=== PATIENT | male | born 1990 | race Caucasian/White ===

== ENCOUNTER 2016-12-24 20:07 | Emergency (ER) | payer OTHER ==
[~2016-12-24] VITALS: Ht 182.8 cm; Wt 93.4 kg
[2016-12-24] MEDS ORDERED: CLINDAMYCIN HC300 MG PO (20:20)
[2016-12-24] MEDS ORDERED: LIDOCAINE VISC100 ML MM (20:20)
[2016-12-24] MEDS ORDERED: Peridex 473 ML473 ML PO (20:20)
== END 2016-12-24 20:18 | disposition home or self-care (01) ==
LOC: ED 20:07
DX: K08.89 Other specified disorders of teeth and supporting structures (principal); Z88.0 Allergy status to penicillin; Z88.1 Allergy status to other antibiotic agents

== ENCOUNTER 2017-12-08 15:31 | Inpatient (IN) | payer OTHER ==
[~2017-12-08] VITALS: Ht 185.4 cm; Wt 101.3 kg
[~2017-12-08 15:31] MED LIST: CLINDAMYCIN HC300 MG PO; LIDOCAINE VISC100 ML MM; Peridex 473 ML473 ML PO
[2017-12-08 15:39] VITALS: BP 121/78
[2017-12-08 16:30] LABS: BILIRUBIN 1+ (NEGATIVE); BLOOD NEGATIVE (NEGATIVE); CLARITY CLEAR (CLEAR); COLOR YELLOW (YELLOW); GLUCOSE NEGATIVE (NEGATIVE); KETONE TRACE (NEGATIVE); LEUKO ESTERASE NEGATIVE (NEGATIVE); NITRITE NEGATIVE (NEGATIVE); SPECIFIC GRAVITY 1.015 (1.005-1.030); UROBILINOGEN >= 8.0 E.U./dl (0.2-1.0)
[2017-12-08 16:34] LABS: BASO % 0.1 % (0.0-1.0); EOS # 0.2 10*3/uL (0.0-0.4); EOS % 1.2 % (1.0-4.0); HEMATOCRIT 37.9 % (42.0-52.0); HEMOGLOBIN 12.9 g/dl (14.0-18.0); LYMPH # 1.7 10*3/uL (1.3-4.4); LYMPH % 11.8 % (27.0-41.0); MONO # 0.8 10*3/uL (0.1-1.0); MONO % 5.4 % (3.0-9.0); NEUT # 11.9 10*3/uL (2.3-7.9); NEUT % 81.2 % (47.0-73.0); PLATELET COUNT AUTOMATED 205 10*3/uL (130-400); RED BLOOD COUNT 4.03 10*6/uL (4.50-5.90); RED CELL DISTRI WIDTH 12.5 % (0-14.5); WHITE BLOOD COUNT 14.7 10*3/uL (4.8-10.8)
[2017-12-08 16:40] VITALS: BP 120/78
[2017-12-08 16:40] LABS: BACTERIA TRACE; MUCOUS 2+
[2017-12-08 16:41] LABS: EPITHELIAL CELLS 0-2; WBC 0-2 wbc/hpf (0-5)
[2017-12-08 16:48] LABS: ALBUMIN 4.2 gm/dl (3.1-4.5); ALKALINE PHOSPHATASE 65 U/L (45-117); BUN 10 mg/dl (7-24); CHLORIDE 106 mmol/L (98-107); LIPASE 99 U/L (73-393); POTASSIUM 3.8 mmol/L (3.5-5.1); SGOT/AST 12 IU/L (3-35); SGPT/ALT 16 U/L (12-78); SODIUM 140 mmol/L (136-145); TOTAL PROTEIN 7.5 gm/dL (6.4-8.2)
[2017-12-08 17:50] VITALS: BP 120/78
[2017-12-08 18:45] VITALS: BP 120/78
[2017-12-08 20:00] VITALS: BP 120/74
[2017-12-08 21:40] VITALS: BP 130/76
[2017-12-09] VITALS (11 sets, daily range): BP systolic 98–130; BP diastolic 51–77
[2017-12-09 07:13] LABS: BASO % 0.3 % (0.0-1.0); EOS # 0.3 10*3/uL (0.0-0.4); EOS % 4.9 % (1.0-4.0); HEMATOCRIT 34.8 % (42.0-52.0); HEMOGLOBIN 11.7 g/dl (14.0-18.0); LYMPH # 2.1 10*3/uL (1.3-4.4); LYMPH % 31.6 % (27.0-41.0); MEAN CELL VOLUME 94.6 fl (80.0-94.0); MEAN CORPUSCULAR HGB 31.8 pg (27.0-31.0); MEAN CORPUSCULAR HGB CONC 33.6 g/dl (33.0-37.0); MEAN PLATELET VOLUME 10.3 fl (9.6-12.3); MONO # 0.5 10*3/uL (0.1-1.0); NEUT # 3.5 10*3/uL (2.3-7.9); NEUT % 54.7 % (47.0-73.0); PLATELET COUNT AUTOMATED 168 10*3/uL (130-400); RED BLOOD COUNT 3.68 10*6/uL (4.50-5.90); RED CELL DISTRI WIDTH 12.5 % (0-14.5); WHITE BLOOD COUNT 6.5 10*3/uL (4.8-10.8)
[2017-12-09 07:35] LABS: ALBUMIN 3.5 gm/dl (3.1-4.5); CHLORIDE 107 mmol/L (98-107); CHOLESTEROL 118 mg/dL (<200); POTASSIUM 3.5 mmol/L (3.5-5.1); SODIUM 139 mmol/L (136-145); TRIGLYCERIDES 103 mg/dl (<150); VLDL CHOLESTEROL 21 mg/dL (6-40)
[2017-12-09 07:43] LABS: ALKALINE PHOSPHATASE 56 U/L (45-117); BUN 10 mg/dl (7-24); CREATININE 0.83 mg/dL (0.70-1.30); HDL CHOLESTEROL 22 mg/dl (40-60); LDL CHOLESTEROL 75 mg/dL (9-159); PHOSPHOROUS 2.7 mg/dL (2.5-4.9); SGOT/AST 9 IU/L (3-35); SGPT/ALT 13 U/L (12-78); THYROID STIM HORMONE (HS) 0.855 uIU/ml (0.358-4.75); TOTAL PROTEIN 6.6 gm/dL (6.4-8.2)
[2017-12-09 07:49] LABS: ACT PARTIAL THROMBO TIME 27.1 SECONDS (20.8-31.5); INTERNATIONAL NORM RATIO 1.1 (2.0-3.5)
[2017-12-09 08:21] LABS: VITAMIN D, 25-HYDROXY 12.7 ng/mL (30-100)
== END 2017-12-09 21:38 | disposition home or self-care (01) | DRG 343 ==
LOC: ED 15:31 → 5E 21:05 → EDHOLD 21:05 → 5E 21:38
PROVIDERS: Internal Medicine Nephrology; Nurse Practitioner
PROC: 0DTJ4ZZ Resection of Appendix, Percutaneous Endoscopic Approach (ICD-10-PCS; principal; 2017-12-09)
DX: K37 Unspecified appendicitis (principal); E83.41 Hypermagnesemia; E83.51 Hypocalcemia; F17.200 Nicotine dependence, unspecified, uncomplicated; D50.9 Iron deficiency anemia, unspecified; D72.810 Lymphocytopenia; D72.9 Disorder of white blood cells, unspecified; E80.6 Other disorders of bilirubin metabolism; F17.210 Nicotine dependence, cigarettes, uncomplicated; R00.1 Bradycardia, unspecified; Z88.0 Allergy status to penicillin; Z72.89 Other problems related to lifestyle; Z88.9 Allergy status to unspecified drugs, medicaments and biological substances; Z71.6 Tobacco abuse counseling

== ENCOUNTER 2018-03-21 23:46 | Emergency (ER) | payer OTHER ==
[~2018-03-21] VITALS: Ht 182.8 cm; Wt 96.6 kg
[2018-03-22] MEDS ORDERED: CLINDAMYCIN HC300 MG PO (00:46)
== END 2018-03-22 00:56 | disposition home or self-care (01) ==
LOC: ED 23:46
DX: S91.115A Laceration without foreign body of left lesser toe(s) without damage to nail, initial encounter (principal); F17.200 Nicotine dependence, unspecified, uncomplicated; Z88.0 Allergy status to penicillin; Z88.1 Allergy status to other antibiotic agents; W25.XXXA Contact with sharp glass, initial encounter; Y93.89 Activity, other specified; Y92.89 Other specified places as the place of occurrence of the external cause; Y99.8 Other external cause status